=== PATIENT | female | born 1960 | race Caucasian/White ===

== ENCOUNTER 2018-09-15 16:28 | Emergency (ER) | payer SELFPAY ==
[~2018-09-15] VITALS: Ht 165.1 cm; Wt 68.0 kg
[2018-09-15] MEDS ORDERED: IBUPROFEN 600MG TABLET PO ONE (17:30)
[2018-09-15 19:05] VITALS: BP 160/65
== END 2018-09-15 19:14 | disposition home or self-care (01) ==
LOC: ER 16:28
DX: S82.492A Other fracture of shaft of left fibula, initial encounter for closed fracture (principal); S82.892A Other fracture of left lower leg, initial encounter for closed fracture; W18.39XA Other fall on same level, initial encounter; Y93.89 Activity, other specified; Y92.89 Other specified places as the place of occurrence of the external cause; Y99.8 Other external cause status
CPT/HCPCS: 29515; 73600; 99283; Z7610